=== PATIENT | female | born 1950 | race Caucasian/White ===

== ENCOUNTER → 2019-10-11 | Outpatient (CLI) | payer MEDICARE ==
[~2019-10-11] MED LIST: ASPI-496 PO; BETA15CR4 TP; CHOL200074 PO; DIPH25CA61 PO; GLUC-149 PO; LOSA50TA14 PO; MULT-658 PO; NAPR220C2 PO; PROG100C16 PO; SIMV20TA19 PO; TRAM50TA2 PO; TRIA10.8 NS
[2019-10-11 11:55] LABS: ALANINE AMINOTRANSFERASE 40 U/L (12-78); ALBUMIN 3.9 g/dL (3.4-5.0); ANION GAP 4 mmol/L (5-15); CALCIUM 9.8 mg/dL (8.5-10.1); CHLORIDE 107 mmol/L (98-107)
[2019-10-11 11:58] LABS: ALKALINE PHOSPHATASE 78 U/L (45-117); BILIRUBIN,TOTAL 0.4 mg/dL (0.2-1.0); CREATININE 0.85 mg/dL (0.55-1.02); TOTAL PROTEIN 7.4 g/dL (6.4-8.2)
== END | disposition home or self-care (01) ==
LOC: STAR 10:23
PROVIDERS: ATTEND Orthopaedic Surgery
DX: Z01.818 Encounter for other preprocedural examination (principal); M17.12 Unilateral primary osteoarthritis, left knee; M25.562 Pain in left knee
CPT/HCPCS: 36415; 80053; 87081; 93005

== ENCOUNTER → 2019-10-23 | Outpatient (CLI) | payer MEDICARE | END | disposition home or self-care (01) | LOC: STAR 09:53 | PROVIDERS: ATTEND Anesthesiology | DX: Z01.812 Encounter for preprocedural laboratory examination (principal); Z20.828 Contact with and (suspected) exposure to other viral communicable diseases | CPT/HCPCS: 36415; 87635 ==

== ENCOUNTER 2019-10-26 12:42 | Observation (INO) | payer MEDICARE ==
[~2019-10-26] VITALS: Ht 162.6 cm; Wt 108.3 kg
[~2019-10-26 12:42] MED LIST changes: +BUPIVACAINE/EPI 0.5% 1:200K ONE; +LIDOCAINE 1%-EPI 1:100K, 20ML ONE
[2019-10-26] MEDS ORDERED: LACTATED RINGERS 1,000 ML IV SCH (13:34)
[2019-10-26] MEDS ORDERED: FENTANYL PF 100 MCG/2ML ONE (13:36)
[2019-10-26] MEDS ORDERED: MIDAZOLAM 1 MG/ML, 2ML ONE ×2 (13:36→15:10)
[2019-10-26] MEDS ORDERED: CHLORHEXIDINE 15 ML UDC MM ONE (14:00)
[2019-10-26] MEDS ORDERED: TRANEXAMIC ACID 100 MG/ML, 10ML ONE (14:30)
[2019-10-26] MEDS ORDERED: PROPOFOL 10 MG/ML, 50ML ONE (14:57)
[2019-10-26] MEDS ORDERED: CEFAZOLIN 1,000 MG ONE (14:57)
[2019-10-26] MEDS ORDERED: BETAMETHASONE DIPRO CRM 0.05%, 15GM TP PRN (15:00)
[2019-10-26] MEDS ORDERED: PROMETHAZINE 25 MG/ML, 1ML IM PRN (15:00)
[2019-10-26] MEDS ORDERED: ONDANSETRON 4 MG TABLET PO PRN (15:00)
[2019-10-26] MEDS ORDERED: HYDROcodone/APAP 5/325 TABLET PO PRN (15:00)
[2019-10-26] MEDS ORDERED: PROMETHAZINE 12.5 MG SUPP PR PRN (15:00)
[2019-10-26] MEDS ORDERED: DIPHENHYDRAMINE 25 MG CAPSULE PO PRN (15:00)
[2019-10-26] MEDS ORDERED: BISACODYL 10 MG SUPP PR PRN (15:00)
[2019-10-26] MEDS ORDERED: SENNA/DOCUSATE TABLET PO PRN (15:00)
[2019-10-26] MEDS: KETOROLAC 30 MG/1 ML IV SCH ×2 (15:00→20:23)
[2019-10-26] MEDS: ACETAMINOPHEN 500 MG TABLET PO SCH ×2 (15:00→20:22)
[2019-10-26] MEDS ORDERED: MAGNESIUM HYDROXIDE 8%, 30ML UDC PO PRN (15:00)
[2019-10-26] MEDS ORDERED: BUPIVACAINE/PF-EPI 0.5% 1:200K INFIL ONE (15:36)
[2019-10-26] MEDS ORDERED: PROPOFOL 10 MG/ML, 20ML ONE (16:58)
[2019-10-26] MEDS: D5%-0.45% NACL 1,000 ML IV SCH (18:18)
[2019-10-26] MEDS: DOCUSATE 100 MG CAPSULE PO SCH (20:22)
[2019-10-26] MEDS ORDERED: LOSARTAN 50MG TABLET PO SCH (21:00)
[2019-10-26] MEDS ORDERED: FLUTICASONE NASAL SPRAY 16GM NAS SCH (21:00)
[2019-10-26] MEDS ORDERED: ASPIRIN 81 MG TABLET EC PO SCH (21:00)
[2019-10-26] MEDS ORDERED: SIMVASTATIN 20 MG TABLET PO SCH (21:00)
[2019-10-26] MEDS ORDERED: DIPHENHYDRAMINE 25 MG CAPSULE PO SCH (21:00)
[2019-10-26] MEDS ORDERED: PROGESTERONE 100 MG CAPSULE PO SCH (21:00)
[2019-10-26 21:21] VITALS: BP 112/69
[2019-10-27] VITALS: BP 120/74
[2019-10-27] MEDS: D5%-0.45% NACL 1,000 ML IV SCH ×2 (00:34→09:51)
[2019-10-27] MEDS: ACETAMINOPHEN 500 MG TABLET PO SCH ×3 (02:45→14:51)
[2019-10-27 03:55] VITALS: BP 116/71
[2019-10-27] MEDS ORDERED: ASPIRIN 325 MG TABLET PO SCH (06:00)
[2019-10-27] MEDS: KETOROLAC 30 MG/1 ML IV SCH (06:13)
[2019-10-27 08:00] VITALS: BP 100/64
[2019-10-27] MEDS: DOCUSATE 100 MG CAPSULE PO SCH (08:14)
[2019-10-27 13:58] VITALS: BP 106/62
== END 2019-10-27 16:01 | disposition home or self-care (01) ==
LOC: OUT 12:42 → ORIP 17:52 → 4NE 18:00
PROVIDERS: ADMIT Orthopaedic Surgery; ATTEND Orthopaedic Surgery
DX: M17.12 Unilateral primary osteoarthritis, left knee (principal); I10 Essential (primary) hypertension; E78.5 Hyperlipidemia, unspecified; E66.9 Obesity, unspecified; Z88.0 Allergy status to penicillin; Z91.040 Latex allergy status; Z79.899 Other long term (current) drug therapy; Z87.891 Personal history of nicotine dependence
CPT/HCPCS: 27447; 73560; 96361; 96374; 96376; 97162; C1713; C1776; G0378; J0690; J1885; J2250; J2704; J3010; J7120; Q0162; Q0163; J3490